=== PATIENT | male | born 1950 | race Caucasian/White ===

== ENCOUNTER 2021-06-01 09:55 | Emergency (ER) | payer MEDICARE ==
[2021-06-01 10:03] VITALS: BP 171/95; PULSE 74; O2SAT 98
--- NOTE | 2021-06-01 10:21 | ERPHSYRPT ---
- History of Present Illness Time Seen by Provider: 06/01/21 10:10 Historian: patient Exam Limitations: no limitations Patient Subjective Stated Complaint: Abdominal pain Triage Nursing Assessment: Patient ambulated back to ED and transferred self to bed. Patient A+O X3. Patient's skin pink, warm and dry. Patient complains of abdominal pain above umbilicus. Patient has notable hernia above umbilicus that is causing him pain. Patient states pain is constant sharp pain 7/10. Patient denies N/V or diarrhea. Physician History: Patient is a 71-year-old male presents to our ED with a incarcerated periumbilical hernia. Patient has been experiencing recurrence of his hernia for the past 2 years. Hernia reoccurred this morning. Patient is normally able to reduce the hernia however he was unable to reduce his hernia this morning. Pain currently 7 out of 10 localized to the area of the hernia. No other symptoms. No nausea or vomiting. No diarrhea. No rash. No trauma. Symptoms are mild to moderate in intensity. No specific worsening improving factors. Patient otherwise feels well. He voices no other complaints or concerns at this time. Timing/Duration: today Activities at Onset: none Quality: aching Abdominal Pain Onset Location: periumbilical Pain Radiation: no radiation Severity of Pain-Max: moderate Severity of Pain-Current: mild Modifying Factors: Improves With: nothing Associated Symptoms: denies symptoms Previous symptoms: same symptoms as today Allergies/Adverse Reactions: No Known Drug Allergies Allergy (Unverified 06/01/21 09:58) Home Medications: No Reportable Medications [No Reported Medications] 06/01/21 [History] Hx Influenza Vaccination/Date Given: No Hx Pneumococcal Vaccination/Date Given: No Immunizations Up to Date: Yes Travel Risk - International Travel Have you traveled outside of the country in past 3 weeks: No - Coronavirus Screening Are you exhibiting any of the following symptoms?: No Close contact with a COVID-19 positive Pt in past 14-21 Days: No - Vaccine Status Have you recieved a Covid-19 vaccination: No - Review of Systems Constitutional: No Symptoms, No Fever, No Chills Eyes: No Symptoms Ears, Nose, & Throat: No Symptoms Respiratory: No Symptoms, No Cough, No Dyspnea Cardiac: No Symptoms, No Chest Pain, No Edema, No Syncope Abdominal/Gastrointestinal: No Symptoms, No Abdominal Pain, No Nausea, No Vomiting, No Diarrhea Genitourinary Symptoms: No Symptoms, No Dysuria Musculoskeletal: No Symptoms, No Back Pain, No Neck Pain Skin: No Symptoms, No Rash Neurological: No Symptoms, No Dizziness, No Focal Weakness, No Sensory Changes Psychological: No Symptoms Endocrine: No Symptoms Hematologic/Lymphatic: No Symptoms Immunological/Allergic: No Symptoms All Other Systems: Reviewed and Negative - Past Medical History Pertinent Past Medical History: No Neurological History: No Pertinent History ENT History: No Pertinent History Cardiac History: No Pertinent History Respiratory History: No Pertinent History Endocrine Medical History: No Pertinent History Musculoskeletal History: No Pertinent History GI Medical History: No Pertinent History History: No Pertinent History Psycho-Social History: No Pertinent History Male Reproductive Disorders: No Pertinent History - Past Surgical History Past Surgical History: No Neuro Surgical History: No Pertinent History Cardiac: No Pertinent History Respiratory: No Pertinent History Gastrointestinal: No Pertinent History Genitourinary: No Pertinent History Musculoskeletal: No Pertinent History Male Surgical History: No Pertinent History - Social History Smoking Status: Current every day smoker How long have you smoked: years Exposure to second hand smoke: No Drug Use: marijuana Patient Lives Alone: Yes - Nursing Vital Signs Nursing Vital Signs: Initial Vital Signs Temperature 98.0 F 06/01/21 09:59 Pulse Rate 74 06/01/21 09:59 Respiratory Rate 18 06/01/21 09:59 Blood Pressure 171/95 06/01/21 09:59 O2 Sat by Pulse Oximetry 98 06/01/21 09:59 Pain Scale Pain Intensity 7 - Physical Exam General Appearance: no apparent distress, alert Eye Exam: PERRL/EOMI, eyes nml inspection Ears, Nose, Throat Exam: normal ENT inspection, pharynx normal, moist mucous membranes Neck Exam: normal inspection, non-tender, supple, full range of motion Respiratory Exam: normal breath sounds, lungs clear, No respiratory distress Cardiovascular Exam: regular rate/rhythm, normal heart sounds Gastrointestinal/Abdomen Exam: soft, other (There is an obvious tender hernia just superior to the umbilicus. Overlying soft tissue intact. No signs of trauma.), No tenderness, No mass Back Exam: normal inspection, normal range of motion, No CVA tenderness, No vertebral tenderness Extremity Exam: normal inspection, normal range of motion, pelvis stable Neurologic Exam: alert, oriented x 3, cooperative, normal mood/affect, nml ce rebellar function, sensation nml, No motor deficits Skin Exam: normal color, warm, dry SpO2 Interpretation: normal SpO2: 98 O2 Delivery: Room Air - Course Nursing assessment & vital signs reviewed: Yes - Progress Progress: improved Progress Note: We were able to successfully reduce the hernia by placing patient in Trendelenburg and applying a cold pack to the area of involvement. Pain res olved. The hernia visibly reduced. Patient referred to general surgery. No indication for further work-up at this time. Will discharge home. Patient has no other complaints. Portions of this note were created with voice recognition technology. There may be grammatical, spelling, punctuation or sound alike errors 06/01/21 10:33 Counseled pt/family regarding: diagnosis, need for follow-up - Departure Departure Disposition: Home Clinical Impression: Periumbilical hernia Condition: Stable Critical Care Time: No Referrals: MARIANA ZHAO [ACTIVE STAFF] - Instructions: Abdominal Hernia (DC) Additional Instructions: Discharge/Care Plan BALDO MÁRQUEZ was seen on 06/01/21 in the Emergency Room. The patient was counseled regarding Diagnosis,Lab results, Imaging studies, need for follow up and when to return to the Emergency Room. Prescriptions given: Discharge Note I have spoken with the patient and/or caregivers. I have explained the patient's condition, diagnosis and treatment plan based on the information available to me at this time. I have answered the patient's and/or caregiver's questions and addressed any concerns. The patient and/or caregivers have as good understanding of the patient's diagnosis, condition and treatment plan as can be expected at this point. The vital signs have been stable. The patient's condition is stable and appropriate for discharge from the emergency department. The patient will pursue further outpatient evaluation with the primary care physician or other designated or consulting physician as outlined in the discharge instructions. The patient and/or caregivers are agreeable to this plan of care and follow-up instructions have been explained in detail. The patient and/or caregivers have received these instruction. The patient/and or caregivers are aware that any significant change in condition or worsening of symptoms should prompt an immediate return to this or the closest emergency department or call 911.
== END 2021-06-01 10:30 | disposition home or self-care (01) ==
LOC: ED 09:55
DX: K42.9 Umbilical hernia without obstruction or gangrene (principal)
CPT/HCPCS: 99283

== ENCOUNTER 2021-09-01 07:05 | Emergency (ER) | payer MEDICARE ==
[2021-09-01] MEDS ORDERED: TORAdol 30 mg Injection IM ONE (07:38)
--- NOTE | 2021-09-01 07:49 | ERPHSYRPT ---
- History of Present Illness Time Seen by Provider: 09/01/21 07:38 Source: patient Exam Limitations: no limitations Patient Subjective Stated Complaint: PT states "I have had hernia surgery and colonoscopy in july and I have a follow up with Dr. Lopez on sunday but I cannot wait. The pain is right next to my right testicle and goes up and over into my butt and down my right leg." Triage Nursing Assessment: Pt presented alert and oriented X 3, skin wpd Pt ambulates with a limp. Pt able to speak in clear full sentences. PT has no brusiing, swelling or deformity to right hip. Physician History: Patient is a 71-year-old male presents to our ED via private vehicle for evaluation of back pain that radiates down his right leg and into his right groin. Pain started approximately 2 days ago. Patient advises that he had hernia surgery repair on July 28. Patient reportedly had a ventral hernia and left inguinal hernia repair. No postoperative complications. Patient had been asymptomatic up until yesterday. No trauma. No fever. No nausea or vomiting. No diarrhea. No hematuria or dysuria. Symptoms are mild to moderate in intensity. No specific worsening or improving factors. Patient voices no other complaints or concerns at this time. Timing/Duration: day(s) (2 days ago) Severity: moderate Modifying Factors: Improves With: nothing Associated Symptoms: denies symptoms Allergies/Adverse Reactions: No Known Drug Allergies Allergy (Verified 09/01/21 07:18) Hx Influenza Vaccination/Date Given: No Hx Pneumococcal Vaccination/Date Given: No Immunizations Up to Date: Yes Travel Risk - International Travel Have you traveled outside of the country in past 3 weeks: No - Coronavirus Screening Are you exhibiting any of the following symptoms?: No Close contact with a COVID-19 positive Pt in past 14-21 Days: No - Vaccine Status Have you recieved a Covid-19 vaccination: No - Review of Systems Constitutional: No Symptoms, No Fever, No Chills Eyes: No Symptoms Ears, Nose, & Throat: No Symptoms Respiratory: No Symptoms, No Cough, No Dyspnea Cardiac: No Symptoms, No Chest Pain, No Edema, No Syncope Abdominal/Gastrointestinal: No Symptoms, No Abdominal Pain, No Nausea, No Vomiting, No Diarrhea Genitourinary Symptoms: No Symptoms, No Dysuria Musculoskeletal: No Symptoms, No Back Pain, No Neck Pain Skin: No Symptoms, No Rash Neurological: No Symptoms, No Dizziness, No Focal Weakness, No Sensory Changes Psychological: No Symptoms Endocrine: No Symptoms Hematologic/Lymphatic: No Symptoms Immunological/Allergic: No Symptoms All Other Systems: Reviewed and Negative - Past Medical History Pertinent Past Medical History: No Neurological History: No Pertinent History ENT History: No Pertinent History Cardiac History: No Pertinent History Respiratory History: No Pertinent History Endocrine Medical History: No Pertinent History Musculoskeletal History: No Pertinent History GI Medical History: No Pertinent History History: No Pertinent History Psycho-Social History: No Pertinent History Male Reproductive Disorders: No Pertinent History - Past Surgical History Past Surgical History: No Neuro Surgical History: No Pertinent History Cardiac: No Pertinent History Respiratory: No Pertinent History Gastrointestinal: No Pertinent History Genitourinary: No Pertinent History Musculoskeletal: No Pertinent History Male Surgical History: No Pertinent History Other Surgical History: hernia. colonoscopy - Social History Smoking Status: Current every day smoker How long have you smoked: years Exposure to second hand smoke: No Drug Use: marijuana Patient Lives Alone: Yes - Nursing Vital Signs Nursing Vital Signs: Initial Vital Signs Temperature 97.7 F 09/01/21 07:12 Pulse Rate 78 09/01/21 07:12 Respiratory Rate 20 09/01/21 07:12 Blood Pressure 146/110 09/01/21 07:12 O2 Sat by Pulse Oximetry 98 09/01/21 07:12 Pain Scale Pain Intensity 4 - Physical Exam General Appearance: no apparent distress, alert Eye Exam: PERRL/EOMI, eyes nml inspection Ears, Nose, Throat Exam: normal ENT inspection, TMs normal, pharynx normal, moist mucous membranes Neck Exam: normal inspection, non-tender, supple, full range of motion Respiratory Exam: normal breath sounds, lungs clear, airway intact, No respiratory distress Cardiovascular Exam: regular rate/rhythm, normal heart sounds, normal peripheral pulses Gastrointestinal/Abdomen Exam: soft, normal bowel sounds, No tenderness, No mass Back Exam: normal inspection, normal range of motion, No CVA tenderness, No vertebral tenderness Extremity Exam: normal inspection, normal range of motion, pelvis stable Neurologic Exam: alert, oriented x 3, cooperative, normal mood/affect, nml cerebellar function, nml station & gait, sensation nml, No motor deficits Skin Exam: normal color, warm, dry, No rash Lymphatic Exam: No adenopathy SpO2 Interpretation: normal SpO2: 98 O2 Delivery: Room Air - Course Nursing assessment & vital signs reviewed: Yes - CT Exams Lumbar Spine CT Interpretation: Tele-radiologist Report (Minimal T9-L3 degenerative vacuum disc phenomena and mild L2-L3 broad-based disc bulge. No large disc herniation or spinal canal stenosis. Mild right L5-S1 degenerative facet arthropathy. Sagi ttal and coronal reformatted images demonstrate normal alignment. Minimal T9-L3 degenerative disc space narr) Abdomen/Pelvis CT Interpretation: Tele-radiologist Report (Small hepatic hemangioma/cyst, nonobstructing right renal micro calculus, enlarged prostate gland. Minimal mild degenerative multilevel spondylosis. Remaining CT abdomen pelvis without contrast is negative.) - Radiology Ultrasound Exam Scrotal Ultrasound: tele radiology report (Both testicles homogenous in echogenicity with normal color perfusion. Right testicle measures 3.4 x 1.9 x 3.3 and the left measures 3.4 x 2.1 x 3.9. Left and right epididymis sonographically unremarkable. No suspicious extra testicular mass or hydrocele. Negative testicular exam.) Ordered Tests: Active Orders 24 hr Category Date Time Status ABDOMEN AND PELVIS W/0 CONTRAS [CT] Stat Exams 09/01/21 07:39 Completed RECONSTRUCTION [CT] Stat Exams 09/01/21 08:05 Completed TESTICLE [US] Stat Exams 09/01/21 07:41 Completed UA W/RFX UR CULTURE Stat Lab 09/01/21 09:15 Completed Medication Summary Discontinued Medications Generic Name Dose Route Start Last Admin Trade Name Freq PRN Reason Stop Dose Admin Ketorolac Tromethamine 30 mg 09/01/21 07:38 09/01/21 08:03 Ketorolac Tromethamine 30 Mg/Ml Inj IM 09/01/21 07:39 30 mg STAT ONE Administration Ketorolac Tromethamine Confirm 09/01/21 08:02 Ketorolac Tromethamine 30 Mg/Ml Inj Administered 09/01/21 08:03 Dose 30 mg .ROUTE .STK-MED ONE Lab/Rad Data: Laboratory Results 09/01/21 Range/Units 09:15 Urine Color YELLOW (YELLOW) Urine Appearance CLEAR (CLEAR) Urine pH 6.0 (5-6) Ur Specific [place] 1.010 (1.005-1.025) Urine Protein NEGATIVE (Negative) Urine Ketones NEGATIVE (NEGATIVE) Urine Blood NEGATIVE (0-5) Ramon/ul Urine Nitrite NEGATIVE (NEGATIVE) Urine Bilirubin NEGATIVE (NEGATIVE) Urine Urobilinogen NEGATIVE (0-1) mg/dL Ur Leukocyte Esterase NEGATIVE (NEGATIVE) Urine WBC (Auto) 0-2 (0-5) /HPF Urine RBC (Auto) 0-2 (0-2) /HPF U Epithel Cells (Auto) FEW (FEW) /HPF Urine Bacteria (Auto) FEW (NEGATIVE) /HPF Urine Culture Reflexed NO (NO) Urine Glucose NEGATIVE (NEGATIVE) mg/dL - Progress Progress: improved Progress Note: Patient reassessed. Pain significantly improved. Patient states pain is worse when he stands up and significantly improves when he sits down or lays flat. Work-up reveals a disc bulge in the lumbar spine as identified on a CT lumbar spine with 3D reconstruction views. CT abdomen pelvis negative for acute findings. Ultrasound testicle is also negative. Patient received Toradol for pain control. Urinalysis was nonremarkable. Patient is a . Patient currently has an appointment scheduled with , the general surgeon that performed patient's hernia repair. Patient states he does not have a primary care doctor. Dr. Mijares is our on-call doctor. We will give patient referral to Dr. Mijares for follow-up of back pain with sciatica/possible outpatient MRI. Plan of care discussed with patient. He voices no other complaints or concerns at this time. Patient agrees to follow-up with Dr. Mijares in 48 hours for evaluation. We attempted to call to provide him with an update however there is no return call. Portions of this note were created with voice recognition technology. There may be grammatical, spelling, punctuation or sound alike errors 09/01/21 10:10 Patient received a dose of Decadron from our ED. A prescription for Toradol was forwarded to patient's pharmacy. 09/01/21 10:18 Counseled pt/family regarding: diagnosis, need for follow-up, rad results - Departure Departure Disposition: Home Clinical Impression: Arthritis of spine, L2-L3 broad-based disc bulge, Hepatic hemangioma, Hepatic cyst, Right nephrolithiasis, Enlarged prostate Condition: Stable Critical Care Time: No Referrals: DOCTOR,NO FAMILY [Primary Care Provider] - Follow up/PCP as directed CARINA MIJARES MD [ACTIVE STAFF] - Follow up/PCP as directed Additional Instructions: Discharge/Care Plan FOSTER,BALDO was seen on 09/01/21 in the Emergency Room. The patient was counseled regarding Diagnosis,Lab results, Imaging studies, need for follow up and when to return to the Emergency Room. Prescriptions given: Discharge Note I have spoken with the patient and/or caregivers. I have explained the patient's condition, diagnosis and treatment plan based on the information available to me at this time. I have answered the patient's and/or caregiver's questions and addressed any concerns. The patient and/or caregivers have as good understanding of the patient's diagnosis, condition and treatment plan as can be expected at this point. The vital signs have been stable. The patient's condition is stable and appropriate for discharge from the emergency department. The patient will pursue further outpatient evaluation with the primary care physician or other designated or consulting physician as outlined in the discharge instructions. The patient and/or caregivers are agreeable to this plan of care and follow-up instructions have been explained in detail. The patient and/or caregivers have received these instruction. The patient/and or caregivers are aware that any significant change in condition or worsening of symptoms should prompt an immediate return to this or the closest emergency department or call 911. Prescriptions: Ketorolac Tromethamine [Toradol] 10 mg PO TID 5 Days #15 tablet
[2021-09-01] MEDS ORDERED: TORAdol 30 mg Injection ONE (08:02)
--- NOTE | 2021-09-01 08:40 | XRAY ---
Indication: Right testicle pain. Two-dimensional testicular sonogram performed. Comparison: None Both testicles homogeneous in echogenicity with normal color perfusion. Right testicle measures 3.4 x 1.9 x 3.3 cm and the left measures 3.4 x 2.1 x 3.9 cm. Left and right epididymis sonographically unremarkable. No suspicious extratesticular mass or hydrocele. Impression: Negative testicular sonogram.
--- NOTE | 2021-09-01 08:41 | XRAY ---
Indication: Right flank/groin/leg pain. Multiple contiguous axial images obtained through the abdomen and pelvis without contrast. Comparison: None Lung bases demonstrates mild bibasilar dependent atelectasis. Heart not enlarged. Noncontrasted stomach and bowel loops appear nonobstructed with normal appendix. No free fluid/air. Right kidney demonstrates nonobstructing 5 mm calculus. 1.6 cm hepatic hemangioma versus cyst. Enlarged prostate gland with chunky calcification slightly impresses on the base of the bladder. Remaining liver, gallbladder, pancreas, spleen, adrenal glands, kidneys, ureters, and bladder are unremarkable for noncontrast exam. Mild scattered aortoiliac calcifications without AAA. Osseous structures intact with minimal/mild T9-L3 degenerative spondylosis. No suspicious bony lesions or spinal canal stenosis. No ventral or inguinal hernias. Impression: 1. Small hepatic hemangioma/cyst, nonobstructing right renal micro-calculus, and enlarged prostate gland. 2. Minimal/mild multilevel degenerative spondylosis. 3. Remaining CT abdomen/pelvis without contrast exam is negative.
--- NOTE | 2021-09-01 08:46 | XRAY ---
Indication: Right flank/groin/leg pain. Axial, sagittal, and coronal reformatted images of the lumbar spine obtained using raw data from same day CT abdomen/pelvis. Comparison: None Axial images demonstrates minimal T9-L3 degenerative vacuum disc phenomena and mild L2-L3 broad-based disc bulge. No large disc herniation or spinal canal stenosis. Mild right L5-S1 degenerative facet arthropathy. Sagittal and coronal reformatted images demonstrate normal alignment. Minimal T9-L3 degenerative disc space narrowing. No acute compression fracture or subluxation. Impression: Minimal/mild multilevel degenerative spondylosis.
[2021-09-01 09:12] VITALS: O2SAT 98
[2021-09-01 09:23] LABS: Appearance CLEAR (CLEAR); Bilirubin NEGATIVE (NEGATIVE); Blood NEGATIVE Ery/ul (0-5); Glucose NEGATIVE (NEGATIVE); Ketones NEGATIVE (NEGATIVE); Leukocyte Esterase NEGATIVE (NEGATIVE); Nitrite NEGATIVE (NEGATIVE); Protein,Urine Dip NEGATIVE (Negative); Urobilinogen NEGATIVE mg/dL (0-1)
[2021-09-01 09:26] LABS: Bacteria FEW /HPF (NEGATIVE); Epithelial Cells FEW /HPF (FEW); RBC 0-2 /HPF (0-2); WBC 0-2 /HPF (0-5)
[2021-09-01 10:11] VITALS: BP 138/80; PULSE 69
[2021-09-01] MEDS ORDERED: DECADRON 10MG INJ. PO ONE (10:16)
[2021-09-01] MEDS ORDERED: DECADRON 10MG INJ. ONE (10:48)
== END 2021-09-01 11:01 | disposition home or self-care (01) ==
LOC: ED 07:05
DX: M47.9 Spondylosis, unspecified (principal); M51.26 Other intervertebral disc displacement, lumbar region; D18.09 Hemangioma of other sites; K76.89 Other specified diseases of liver; N20.0 Calculus of kidney; N40.0 Benign prostatic hyperplasia without lower urinary tract symptoms; Z72.0 Tobacco use
CPT/HCPCS: 74176; 76376; 76870; 81001; 96372; 99284; J1100; J1885